=== PATIENT | male | born 1955 | race Caucasian/White ===

== ENCOUNTER → 2019-04-11 | Day surgery (SDC) | payer OTHER, BC | END | disposition home or self-care (01) | LOC: JRADIR 10:04 | PROVIDERS: ATTEND Orthopaedic Surgery | PROC: BP18YZZ Fluoroscopy of Right Shoulder using Other Contrast (ICD-10-PCS; principal; 2019-04-11) | PROC: BP28YZZ Computerized Tomography (CT Scan) of Right Shoulder using Other Contrast (ICD-10-PCS; 2019-04-11) | DX: M25.511 Pain in right shoulder (principal) | CPT/HCPCS: 23350; 73040-TC-FY; 73200-TC-RT ==

== ENCOUNTER 2022-11-09 04:32 | Day surgery (SDC) | payer OTHER, BC ==
[2022-11-05 11:31] VITALS: BMI 29.0
[2022-11-09] MEDS ORDERED: LIDOCAINE HCL 1%, 10 MG/ML (10ML VIAL) MDV ONE (13:31)
[2022-11-09] MEDS ORDERED: BUPIVACAINE HCL/PF 0.5% (5MG/ML) 10 ML VIAL ONE (13:31)
[2022-11-09] MEDS ORDERED: PROPOFOL 20 ML ONE (13:51)
[2022-11-09] MEDS ORDERED: ROCURONIUM BROMIDE 50 MG/5 ML SYRINGE ONE (13:52)
[2022-11-09] MEDS ORDERED: MIDAZOLAM HCL 2 MG/2 ML SINGLE DOSE VIAL ONE (13:52)
[2022-11-09] MEDS ORDERED: SUCCINYLCHOLINE CHLORIDE 200 MG/10 ML SYRINGE ONE (13:52)
[2022-11-09] MEDS ORDERED: DEXAMETHASONE SOD PHOSPHATE 4 MG/1 ML VIAL ONE (14:08)
[2022-11-09] MEDS ORDERED: ONDANSETRON 4 MG/2 ML VIAL ONE (14:08)
[2022-11-09] MEDS ORDERED: ceFAZolin SODIUM 1 GM VIAL IVPB ONE (14:09)
[2022-11-09] MEDS ORDERED: BUPIVACAINE HCL/PF 0.5% (5MG/ML) 10 ML VIAL IJ ONE (14:10)
[2022-11-09] MEDS ORDERED: LIDOCAINE HCL 1%, 10 MG/ML (20ML VIAL) NR ONE (14:10)
[2022-11-09] MEDS ORDERED: ACETAMINOPHEN INJECTION 100 ML IVPB ONE (14:14)
[2022-11-09] MEDS ORDERED: GLYCOPYRROLATE 0.2 MG/1 ML VIAL ONE (14:48)
[2022-11-09] MEDS ORDERED: NEOSTIGMINE METHYLSULFATE 0.5 MG/1 ML - 10 ML MDV ONE (14:48)
[2022-11-09] MEDS ORDERED: oxyCODONE HCL 5 MG TABLET PO PRN (16:33)
[2022-11-09] MEDS ORDERED: PROMETHAZINE HCL 25 MG/1 ML VIAL IVPB PRN (16:33)
[2022-11-09] MEDS ORDERED: ONDANSETRON 4 MG/2 ML VIAL IVPUSH PRN (16:33)
[2022-11-09] MEDS ORDERED: LACTATED RINGERS SOLUTION 1,000 ML IV SCH (16:45)
[2022-11-09 18:14] VITALS: RESP 18
[2022-11-09 18:25] VITALS: BP 120/50; PULSE 55; TEMP 98
== END 2022-11-09 18:15 | disposition home or self-care (01) ==
LOC: JASU-SURG 04:32
PROVIDERS: ATTEND Surgery
PROC: 0YU60JZ Supplement Left Inguinal Region with Synthetic Substitute, Open Approach (ICD-10-PCS; principal; 2022-11-09 12:00)
DX: K40.90 Unilateral inguinal hernia, without obstruction or gangrene, not specified as recurrent (principal)
CPT/HCPCS: 94760; C1781